=== PATIENT | female | born 1935 | race Caucasian/White ===

== ENCOUNTER 2018-06-01 14:33 | Observation (INO) | payer MEDICARE, OTHER ==
[2018-06-01 14:33] VITALS: BMI 21.0
[2018-06-01 14:56] VITALS: RESP 20
--- NOTE | 2018-06-01 15:26 | C.PDOC ---
History Of Present Illness 82-year-old female, presents to the emergency department for G-tube placement. Patient has Hx of cough with swallowing for the past month, she was sent to [facility] yesterday, where she had a swallow screen which she failed. Patient was sent back to [facility] last night. This morning, pt was sent to ED for evaluation and G tube placement by Dr Krishna. No other complaints at this time. Time Seen by Provider: 06/01/18 14:57 Chief Complaint (Nursing): GI Problem History Per: Patient History/Exam Limitations: no limitations Current Symptoms Are (Timing): Still Present Past Medical History Reviewed: Historical Data, Nursing Documentation, Vital Signs Vital Signs: Last Vital Signs Temp 98.2 F 06/01/18 14:48 Pulse 70 06/01/18 14:48 Resp 20 06/01/18 14:48 BP 144/47 L 06/01/18 14:48 Pulse Ox 96 06/01/18 14:48 - Medical History PMH: Arthritis, CAD, Dementia, Diabetes, Fractures (RIGHT HIP FX WITH SURGERY,METAL IMPLANT,FX PELVIS 10-24-13), HTN, Hyperlipidemia Denies: Depression, Chronic Kidney Disease Surgical History: Coronary Stent (X2) - [facility] Procedures ENDOSC RETROGRADE CHOLANGIOPANCREATOGRAPHY [ERCP] (07/31/14) VENOUS PUNCTURE NEC (01/28/15) Family History: States: No Known Family Hx - Social History Hx Alcohol Use: No Hx Substance Use: No Review Of Systems Constitutional: Negative for: Fever Cardiovascular: Negative for: Chest Pain, Palpitations Respiratory: Positive for: Cough Gastrointestinal: Negative for: Nausea, Vomiting Neurological: Negative for: Weakness, Numbness, Headache, Dizziness Physical Exam - Physical Exam Appears: Non-toxic, No Acute Distress Skin: Warm, Dry, No Rash Head: Atraumatic, Normacephalic Eye(s): bilateral: Normal Inspection, PERRL, EOMI Nose: Normal Oral Mucosa: Moist Lips: Normal Appearing Neck: Normal ROM Cardiovascular: Rhythm Regular, No Murmur Respiratory: Normal Breath Sounds, No Accessory Muscle Use Gastrointestinal/Abdominal: Soft, No Tenderness, Other (functional ostomy RLQ) Back: Normal Inspection Extremity: Normal ROM, No Deformity, No Swelling Neurological/Psych: Oriented x3, Normal Speech ED Course And Treatment - Laboratory Results Result Diagrams: 09/26/18 15:29 O2 Sat by Pulse Oximetry: 96 Pulse Ox Interpretation: Normal (RA) - Physician Consult Information Physician Contacted: Joshua Shelby Outcome Of Conversation: Patient to be admitted to his service for GI consultation for G tube placement. Dr mcgowan to be consulted for cardiac clearance Disposition Counseled Patient/Family Regarding: Studies Performed - Disposition Disposition: HOSPITALIZED Disposition Time: 15:56 Condition: STABLE - POA Present On Arrival: None - Clinical Impression Clinical Impression: Dysphagia, At risk for aspiration - Scribe Statement The provider has reviewed the documentation as recorded by the Scribe (Dale Tam) Provider Attestation: All medical record entries made by the Scribe were at my direction and personally dictated by me. I have reviewed the chart and agree that the record accurately reflects my personal performance of the history, physical exam, medical decision making, and the department course for this patient. I have also personally directed, reviewed, and agree with the discharge instructions and disposition.
[2018-06-01] MEDS ORDERED: Sodium Chloride 0.9% 1,000 ML IV SCH (15:30)
[2018-06-01] MEDS ORDERED: Sodium Chloride 0.9% 1,000 ML ONE (15:34)
[2018-06-01 15:38] LABS: BASO # 0.1 K/uL (0.0-0.2); BASO % 0.8 % (0.0-2.0); EOS # 0.1 K/uL (0.0-0.7); EOS % 0.9 % (0.0-4.0); HEMOGLOBIN 12.7 g/dL (11.0-16.0); LYMPH # 4.1 K/uL (1.0-4.3); LYMPH % 40.6 % (20.0-40.0); MEAN CELL VOLUME 90.8 fL (81.0-99.0); MEAN CORPUSCULAR HEMOGLOBIN 30.3 pg (27.0-31.0); MEAN CORPUSCULAR HGB CONC 33.4 g/dL (33.0-37.0); MEAN PLATELET VOLUME 7.9 fL (7.2-11.7); MONO # 0.7 K/uL (0.0-0.8); MONO % 7.2 % (0.0-10.0); NEUT # 5.1 K/uL (1.8-7.0); NEUT % 50.5 % (50.0-75.0); RBC 4.19 Mil/uL (3.80-5.20); RED CELL DISTRIBUTION WIDTH 14.4 % (11.5-14.5); WHITE BLOOD COUNT 10.1 K/uL (4.8-10.8)
[2018-06-01 17:16] LABS: ALB/GLOB RATIO 1.2 (1.0-2.1); ALBUMIN 3.6 g/dL (3.5-5.0); ALT/SGPT 23 U/L (9-52); AST/SGOT 18 U/L (14-36); BLOOD UREA NITROGEN 13 mg/dL (7-17); CALCIUM 9.4 mg/dl (8.6-10.4); GFR NON-AFRICAN AMERICAN > 60
[2018-06-01] MEDS ORDERED: Sodium Chloride 0.45% 1,000 ML IV SCH (18:30)
[2018-06-01] MEDS: (Novolin R) Insulin Human Regular 100 units/ml vial SC SCH (22:15)
--- NOTE | 2018-06-02 05:42 | HP ---
HISTORY OF PRESENT ILLNESS: I know Kim very well from [facility]. She has been there for many years. Over the past few weeks, she stopped eating well, and she failed a swallowing eval, and at a point where we need to put a feeding tube in her. The family wants to have that done, so she is here for feeding tube placement and consult with the income tax advisor and assistant executive housekeeper for clearance but she is medically cleared. PAST MEDICAL AND SURGICAL HISTORY: She has a past medical history of cough and swallow problems. She has arthritis, CAD, dementia, diabetes, fracture of the right hip. The surgeries were metal implant, pelvic fracture. Hypertension, high cholesterol. She had coronary stents x2, right hip fracture was repaired, endoscopic retrograde cholangiopancreatography. FAMILY HISTORY: Hypertension and diabetes in the family. SOCIAL HISTORY: No alcohol. No drugs. REVIEW OF SYSTEMS: She is alert, pleasantly confused. Talks very slowly. She tells me she is okay. No apparent chest pain or palpitation. There is a clock every now and then. No nausea, vomiting apparently. No diarrhea. She is weak and bedridden. She does get out to a wheelchair. PHYSICAL EXAMINATION: GENERAL: She is alert, looking at me, tells me okay, nontoxic, in no acute distress. VITAL SIGNS: She has a 98.2 temperature, pulse 70, respiratory rate 20, blood pressure 144/47, O2 sat of 96% on room air. SKIN: Warm and dry. No apparent rashes or ulcers. HEENT: Atraumatic and normocephalic. Extraocular muscles are intact. Throat is dry. NECK: Supple. No JVD. HEART: Regular rate. Normal S1, S2. LUNGS: Decreased breath sounds. Clear to auscultation. No wheezes or rhonchi. No rales. Poor effort. ABDOMEN: Soft, nontender. No positive bowel sounds. No guarding. No rebound or CVA tenderness. EXTREMITIES: No edema. She is thin and frail, and alert. LABORATORY DATA: She has a 10.1 white count, 12.7 hemoglobin, 38 hematocrit with 302 platelets. O2 sat is 96% on room air. She also has 140 sodium, potassium 4.3, BUN 13, creatinine 0.7, GFR is greater than 60, sugar is 101, calcium 9.4, total bili is 0.8, AST is 18, ALT is 23, alkaline phosphatase is 63, total protein is 6.6, albumin is 3.6, globulin 3. She has basically stopped eating and swallowing, and the recommendation from the speech therapist is not to have her swallow anymore which means we are going to have a feeding tube, that is what we are doing, that is why she is here. She will have IV fluids tonight. We will check her labs tomorrow. GI consult and cardiology evaluation for clearance. I think, she will be okay. She is a very sweet lady. I put her on a diabetic, insulin coverage, and a blood pressure patch, clonidine until we get regular meds through the feeding tube. She is pleasant, comfortable, in no apparent distress. Joshua Shelby DO
[2018-06-02] MEDS ORDERED: Dextrose 5%/0.45% NS 1,000 ML IV SCH (06:00)
[2018-06-02 06:28] LABS: HEMOGLOBIN 11.9 g/dL (11.0-16.0); MEAN CELL VOLUME 91.1 fL (81.0-99.0); MEAN CORPUSCULAR HEMOGLOBIN 30.2 pg (27.0-31.0); MEAN CORPUSCULAR HGB CONC 33.1 g/dL (33.0-37.0); RBC 3.93 Mil/uL (3.80-5.20); RED CELL DISTRIBUTION WIDTH 13.9 % (11.5-14.5); WHITE BLOOD COUNT 8.3 K/uL (4.8-10.8)
[2018-06-02 06:46] LABS: INR 1.1; PROTHROMBIN TIME 12.5 SECONDS (9.7-12.2)
[2018-06-02 06:50] LABS: ALB/GLOB RATIO 1.3 (1.0-2.1); ALBUMIN 3.6 g/dL (3.5-5.0); ALT/SGPT 23 U/L (9-52); AST/SGOT 19 U/L (14-36); BLOOD UREA NITROGEN 12 mg/dL (7-17); CALCIUM 9.1 mg/dl (8.6-10.4); GFR NON-AFRICAN AMERICAN > 60
[2018-06-02 07:38] VITALS: O2SAT 97
--- NOTE | 2018-06-02 07:47 | CP.PCM.CON ---
Addendum entered and electronically signed by Keri Almaguer DO 06/02/18 12:17: Patient's son recalls prior history of EGD and colonoscopy 7 years ago endorsed to be normal in [place], [place]. Original Note: <Keri Almaguer - Last Filed: 06/02/18 08:14> History of Present Illness - History of Present Illness History of Present Illness: Gastroenterology Fellow/PGY6 Consult Note 82 year old female with PMH of Dementia, Ischemic Colitis s/p partial colectomy with colostomy 2009, CAD s/p 2 stents on Plavix 2011, PAD s/p right foot digits amputations, Diabetes, HTN, and HLD presenting with dysphagia. Unable to obtain history from patient due to advanced dementia. History obtained from son and record review. Son notes issues with swallowing since january 2018 with transition to soft diet for the last 1.5 months due to coughing with swallowing. He admits to subjective unintentional weight loss of 25 pounds over the last two years. Denies vomiting, abdominal pain, diarrhea, constipation, melena, or hematochezia. Records on chart from [facility] on 05/31, CT neck w/ contrast showed normal oropharynx, speech/swallow evaluation with high risk of aspiration, and modified barium swallow showed moderate to severe oropharyngeal dysphagia with aspiration. Recommendation of NPO with pleasure nectar thick liquid feeding only with teaspoon and no medications to be taken by mouth. No prior EGD or colonoscopy. Family History- father-throat cancer, denies stomach cancer, colon cancer Social History- denies tobacco, alcohol, illicit drug use Surgical History- right hip ORIF, right foot 2/3/4 digit amputations, cardiac stents 2011, cholecystectomy prior to ERCP 07/2014, ERCP 07/2014 for cholangitis 2/2 choledocholithiasis complicated by gallstone pancreatitis Review of Systems - Review of Systems Review of Systems: 12-point review of systems negative except for as above Past Patient History - Infectious Disease Hx of Infectious Diseases: None - Tetanus Immunizations Tetanus Immunization: Unknown - Past Medical History & Family History Past Medical History?: Yes - Past Social History Smoking Status: Never Smoked - CARDIAC Hx Hypertension: Yes - PULMONARY Hx Respiratory Disorders: No - NEUROLOGICAL Hx Dementia: Yes - HEENT Hx HEENT Problems: (WEARS RX GLASSES) - RENAL Hx Chronic Kidney Disease: No - ENDOCRINE/METABOLIC Hx Diabetes Mellitus Type 2: Yes - HEMATOLOGICAL/ONCOLOGICAL Hx Cancer: Yes (colon ca s/p colostomy, colonic resection) Other/Comment: colostomy - INTEGUMENTARY Other/Comment: pressure ulcer to left buttocks - MUSCULOSKELETAL/RHEUMATOLOGICAL Hx Arthritis: Yes Hx Falls: No Hx Fractures: Yes (RIGHT HIP FX WITH SURGERY,METAL IMPLANT,FX PELVIS [id number]) - GASTROINTESTINAL Hx Gastrointestinal Disorders: Yes Hx Colostomy: Yes - GENITOURINARY/GYNECOLOGICAL Hx Genitourinary Disorders: Yes (URGENCY) - PSYCHIATRIC Hx Depression: No Hx Substance Use: No - SURGICAL HISTORY Hx Coronary Stent: Yes (X2) Hx Joint Replacement: Yes (hip L) - ANESTHESIA Hx Anesthesia: Yes Hx Anesthesia Reactions: No Hx Malignant Hyperthermia: No Meds Allergies/Adverse Reactions: Allergies Allergy/AdvReac Type Severity Reaction Status Date / Time No Known Allergies Allergy Verified 06/01/18 14:55 - Medications Medications: Current Medications Clonidine HCl (Catapres Tts1 0.1 Mg/24 Hr) 1 patch TD Q7D@1000 [facility] Last Admin: 06/01/18 22:05 Dose: 1 patch Dextrose/Sodium Chloride (Dextrose 5%/0.45% Ns 1000 Ml) 1,000 mls @ 60 mls/hr I V .[id number] [facility] Last Admin: 06/02/18 06:10 Dose: 60 mls/hr Insulin Human Regular (Novolin R) 0 unit SC ACHS [facility] Last Admin: 06/01/18 22:15 Dose: Not Given Physical Exam - Constitutional Appears: Non-toxic, No Acute Distress - Head Exam Head Exam: ATRAUMATIC, NORMOCEPHALIC - Eye Exam Eye Exam: EOMI, PERRL. absent: Scleral icterus Pupil Exam: PERRL. absent: Miosis, Mydriatic - ENT Exam ENT Exam: Mucous Membranes Moist, Normal Oropharynx - Neck Exam Neck exam: Positive for: Full Rom, Normal Inspection - Respiratory Exam Respiratory Exam: Clear to Auscultation Bilateral. absent: Rales, Rhonchi, Wheezes - Cardiovascular Exam Cardiovascular Exam: RRR, +S1, +S2. absent: Gallop, Rubs - GI/Abdominal Exam GI & Abdominal Exam: Normal Bowel Sounds, Soft. absent: Distended, Firm, Guarding, Organomegaly, Pulsatile Mass, Rebound, Rigid, Tenderness Additional comments: RLQ colostomy with liquid brown stool - Extremities Exam Extremities exam: Positive for: normal inspection. Negative for: pedal edema Additional comments: right foot 2nd, 3rd, 4th digit amputations - Neurological Exam Neurological exam: Alert Additional comments: not oriented, incomprehensible speech - Psychiatric Exam Additional comments: minimal verbal expression that is incomprehensible - Skin Skin Exam: Dry, Intact, Normal Color, Warm Results - Vital Signs Recent Vital Signs: Last Vital Signs Temp 98 F 06/02/18 07:32 Pulse 78 06/02/18 07:32 Resp 20 06/02/18 07:32 BP 169/73 H 06/02/18 07:32 Pulse Ox 97 06/02/18 07:32 - Labs Result Diagrams: 06/02/18 06:23 06/02/18 06:23 Labs: Laboratory Results - last 24 hr 06/01/18 06/01/18 06/01/18 15:29 16:26 17:24 WBC 10.1 RBC 4.19 Hgb 12.7 Hct 38.0 MCV 90.8 MCH 30.3 MCHC 33.4 RDW 14.4 Plt Count 302 MPV 7.9 Neut % (Auto) 50.5 Lymph % (Auto) 40.6 H [place] % (Auto) 7.2 Eos % (Auto) 0.9 Baso % (Auto) 0.8 Neut # (Auto) 5.1 Lymph # (Auto) 4.1 [place] # (Auto) 0.7 Eos # (Auto) 0.1 Baso # (Auto) 0.1 PT INR Sodium 140 Potassium 4.3 Chloride 99 Carbon Dioxide 30 Anion Gap 15 BUN 13 Creatinine 0.7 Est GFR ( Amer) > 60 Est GFR (Non-Af Amer) > 60 POC Glucose (mg/dL) 101 Random Glucose 105 Calcium 9.4 Total Bilirubin 0.8 AST 18 ALT 23 Alkaline Phosphatase 62 Total Protein 6.6 Albumin 3.6 Globulin 3.0 Albumin/Globulin Ratio 1.2 06/01/18 06/02/18 06/02/18 21:10 02:13 06:23 WBC 8.3 RBC 3.93 Hgb 11.9 Hct 35.8 MCV 91.1 MCH 30.2 MCHC 33.1 RDW 13.9 Plt Count 285 MPV 8.0 Neut % (Auto) Lymph % (Auto) [place] % (Auto) Eos % (Auto) Baso % (Auto) Neut # (Auto) Lymph # (Auto) [place] # (Auto) Eos # (Auto) Baso # (Auto) PT INR Sodium Potassium Chloride Carbon Dioxide Anion Gap BUN Creatinine Est GFR ( Amer) Est GFR (Non-Af Amer) POC Glucose (mg/dL) 96 76 Random Glucose Calcium Total Bilirubin AST ALT Alkaline Phosphatase Total Protein Albumin Globulin Albumin/Globulin Ratio 06/02/18 06/02/18 06/02/18 06:23 06:23 07:20 WBC RBC Hgb Hct MCV MCH MCHC RDW Plt Count MPV Neut % (Auto) Lymph % (Auto) [place] % (Auto) Eos % (Auto) Baso % (Auto) Neut # (Auto) Lymph # (Auto) [place] # (Auto) Eos # (Auto) Baso # (Auto) PT 12.5 H INR 1.1 Sodium 138 Potassium 4.0 Chloride 101 Carbon Dioxide 28 Anion Gap 13 BUN 12 Creatinine 0.6 L Est GFR ( Amer) > 60 Est GFR (Non-Af Amer) > 60 POC Glucose (mg/dL) 87 Random Glucose 75 Calcium 9.1 Total Bilirubin 0.9 AST 19 ALT 23 Alkaline Phosphatase 57 Total Protein 6.4 Albumin 3.6 Globulin 2.8 Albumin/Globulin Ratio 1.3 Assessment & Plan - Assessment and Plan (Free Text) Assessment: 82 year old female with PMH of Dementia, Ischemic Colitis s/p partial colectomy with colostomy 2009, CAD s/p 2 stents on Plavix 2011, PAD s/p right foot digits amputations, Diabetes, HTN, and HLD presenting with dysphagia. Active treatment of failure to thrive 2/2 oropharyngeal dysphagia with GI consultation for PEG placement. No prior EGD or colonoscopy. Records on chart from [facility] on 05/31, CT neck w/ contrast showed normal oropharynx, speech/swallow evaluation with high risk of aspiration, and modified barium swallow showed moderate to severe oropharyngeal dysphagia with aspiration. Recommendation of NPO with pleasure nectar thick liquid feeding only with teaspoon and no medications to be taken by mouth. Plan: -NPO, high risk of aspiration based on modified barium swallow and speech evaluation -follow up cardiology recommendation for clearance -family discussion held with son, understands risks versus benefits of PEG placement -last dose of Plavix on Wednesday, 06/01, prior to admission precluding consideration of PEG placement for additional 72-96 hours -obtain record of CT A/P performed at [facility] per senior living records to rule out structural abnormality/pathology that would be a contraindication to percutane ous gastrostomy placement -obtain PT/INR -consider pleasure feeds and IVFs -further recommendations for possible PEG placement after [facility] record obtained for review of CT A/P and cardiology recommendation <Sai Krishna - Last Filed: 06/02/18 12:58> Meds - Medications Medications: Current Medications Clonidine HCl (Catapres Tts1 0.1 Mg/24 Hr) 1 patch TD Q7D@1000 [facility] Last Admin: 06/01/18 22:05 Dose: 1 patch Dextrose/Sodium Chloride (Dextrose 5%/0.45% Ns 1000 Ml) 1,000 mls @ 60 mls/hr IV .[id number] [facility] Last Admin: 06/02/18 06:10 Dose: 60 mls/hr Insulin Human Regular (Novolin R) 0 unit SC ACHS [facility] Last Admin: 06/02/18 12:16 Dose: Not Given Results - Vital Signs Recent Vital Signs: Last Vital Signs Temp 98 F 06/02/18 07:32 Pulse 78 06/02/18 07:32 Resp 20 06/02/18 07:32 BP 169/73 H 06/02/18 07:32 Pulse Ox 97 06/02/18 07:32 - Labs Result Diagrams: 06/02/18 06:23 06/02/18 06:23 Labs: Laboratory Results - last 24 hr 06/01/18 06/01/18 06/01/18 15:29 16:26 17:24 WBC 10.1 RBC 4.19 Hgb 12.7 Hct 38.0 MCV 90.8 MCH 30.3 MCHC 33.4 RDW 14.4 Plt Count 302 MPV 7.9 Neut % (Auto) 50.5 Lymph % (Auto) 40.6 H [place] % (Auto) 7.2 Eos % (Auto) 0.9 Baso % (Auto) 0.8 Neut # (Auto) 5.1 Lymph # (Auto) 4.1 [place] # (Auto) 0.7 Eos # (Auto) 0.1 Baso # (Auto) 0.1 PT INR Sodium 140 Potassium 4.3 Chloride 99 Carbon Dioxide 30 Anion Gap 15 BUN 13 Creatinine 0.7 Est GFR ( Amer) > 60 Est GFR (Non-Af Amer) > 60 POC Glucose (mg/dL) 101 Random Glucose 105 Calcium 9.4 Total Bilirubin 0.8 AST 18 ALT 23 Alkaline Phosphatase 62 Total Protein 6.6 Albumin 3.6 Globulin 3.0 Albumin/Globulin Ratio 1.2 06/01/18 06/02/18 06/02/18 21:10 02:13 06:23 WBC 8.3 RBC 3.93 Hgb 11.9 Hct 35.8 MCV 91.1 MCH 30.2 MCHC 33.1 RDW 13.9 Plt Count 285 MPV 8.0 Neut % (Auto) Lymph % (Auto) [place] % (Auto) Eos % (Auto) Baso % (Auto) Neut # (Auto) Lymph # (Auto) [place] # (Auto) Eos # (Auto) Baso # (Auto) PT INR Sodium Potassium Chloride Carbon Dioxide Anion Gap BUN Creatinine Est GFR ( Amer) Est GFR (Non-Af Amer) POC Glucose (mg/dL) 96 76 Random Glucose Calcium Total Bilirubin AST ALT Alkaline Phosphatase Total Protein Albumin Globulin Albumin/Globulin Ratio 06/02/18 06/02/18 06/02/18 06:23 06:23 07:20 WBC RBC Hgb Hct MCV MCH MCHC RDW Plt Count MPV Neut % (Auto) Lymph % (Auto) [place] % (Auto) Eos % (Auto) Baso % (Auto) Neut # (Auto) Lymph # (Auto) [place] # (Auto) Eos # (Auto) Baso # (Auto) PT 12.5 H INR 1.1 Sodium 138 Potassium 4.0 Chloride 101 Carbon Dioxide 28 Anion Gap 13 BUN 12 Creatinine 0.6 L Est GFR ( Amer) > 60 Est GFR (Non-Af Amer) > 60 POC Glucose (mg/dL) 87 Random Glucose 75 Calcium 9.1 Total Bilirubin 0.9 AST 19 ALT 23 Alkaline Phosphatase 57 Total Protein 6.4 Albumin 3.6 Globulin 2.8 Albumin/Globulin Ratio 1.3 06/02/18 11:12 WBC RBC Hgb Hct MCV MCH MCHC RDW Plt Count MPV Neut % (Auto) Lymph % (Auto) [place] % (Auto) Eos % (Auto) Baso % (Auto) Neut # (Auto) Lymph # (Auto) [place] # (Auto) Eos # (Auto) Baso # (Auto) PT INR Sodium Potassium Chloride Carbon Dioxide Anion Gap BUN Creatinine Est GFR ( Amer) Est GFR (Non-Af Amer) POC Glucose (mg/dL) 109 Random Glucose Calcium Total Bilirubin AST ALT Alkaline Phosphatase Total Protein Albumin Globulin Albumin/Globulin Ratio Attending/Attestation - Attestation I have personally seen and examined this patient.: Yes I have fully participated in the care of the patient.: Yes I have reviewed all pertinent clinical information: Yes Notes (Text): 06/02/18 12:51 I have seen and examined patient with GI fellow. Agree with above documentation with the following additions. In brief, this is an 82 year old female with history of CAD s/p stent on plavix (last dose yesterday), dementia, colonic ischemia s/p partial resection and ostomy, DM, HTN who is sent from nursing facility for evaluation of progressive dysphagia. Patient herself is not able to fully participate in meaningful conversation, additional information obtained via discussion with patient's son at bedside and nursing staff. He reports she has deteriorated over the past 3 months with progressive dysphagia, coughing during attempted food swallowing, and weight loss of 25 pounds over the past two years. She otherwise denies abdominal pain, nausea, vomiting, fever/chills, or change in bowel habits. She had an EGD/colonoscopy 7 years ago which were normal as per patient's son. CAD s/p stent on plavix (held) Dementia Colonic ischemia s/p partial resection and ostomy DM / HTN Dysphagia - Patient with recent barium swallow at [facility] showing moderate/severe oropharyngeal dysphagia - Obtain copy of recent CT imaging performed - NPO - Follow up cardiology recommendations - Continue with IVF hydration, supportive care - Risks/benefits of endoscopic gastrostomy tube placement discussed with patient's son who is agreeable to proceed with procedure. Will need to wait for 4-5 days to allow for plavix wash out prior to PEG placement, can tentatively plan for Wednesday. Will continue to monitor patient clinical course.
[2018-06-02] MEDS: (Novolin R) Insulin Human Regular 100 units/ml vial SC SCH ×3 (07:52→16:48)
[2018-06-02 18:34] VITALS: TEMP 97.8
[2018-06-02 18:35] VITALS: BP 169/76; PULSE 63
--- NOTE | 2018-06-03 03:45 | DS ---
HISTORY OF PRESENT ILLNESS: She supposed to have a feeding tube placed today. She is medically cleared for the procedure. I am hoping later on today, she can go back to [facility], where she lives permanently and we cover there. Then in 24 hours, we will restart the PEG tube feeding. She will continue with the IV fluids, I changed it to D5 and a half. The blood sugar was 75. She is on the clonidine patch for the blood pressure. She is alert and comfortable. PHYSICAL EXAMINATION: VITAL SIGNS: 97.7 temp, 81 pulse, 167/66 blood pressure, 20 respiratory, 96% O2 sat on room air. GENERAL: She is alert. She baseline. HEART: Regular rate. LUNGS: Clear to auscultation. Decreased breath sounds. ABDOMEN: Soft, nontender. Positive bowel sounds. EXTREMITIES: No edema. MEDICATIONS: She is on Catapres patch, dextrose and insulin coverage. LABORATORY DATA; She had a 10.1 white count, 12.7 hemoglobin, 302 platelets, 140 sodium, potassium 4.3, BUN 30, creatinine 0.7, last blood sugar was 76, D5 and a half. Calcium 9.4, total bilirubin 0.8, AST is 18, ALT 23, alkaline phosphatase 63, total protein 6.6. PLAN: I am hoping after the PEG tube is placed, she will be discharged back to [facility] today. Operative physician, nurse communication had called me at 1 o'clock this afternoon for the discharge order and she is here for PEG tube placement as per family wishes. Of course, she has dysphagia and cannot swallow anymore. Joshua Shelby DO JUDY
== END 2018-06-02 21:30 ==
LOC: C.ER 14:33 → C.9E 15:19 → INTOOBSV 15:19 → C.3T 16:27
PROVIDERS: ADMIT Family Medicine; ATTEND Family Medicine
DX: R13.12 Dysphagia, oropharyngeal phase (principal); E11.51 Type 2 diabetes mellitus with diabetic peripheral angiopathy without gangrene; I10 Essential (primary) hypertension; I25.10 Atherosclerotic heart disease of native coronary artery without angina pectoris; E78.5 Hyperlipidemia, unspecified; F03.90 Unspecified dementia, unspecified severity, without behavioral disturbance, psychotic disturbance, mood disturbance, and anxiety; Z79.4 Long term (current) use of insulin
CPT/HCPCS: 36415; 80053; 82948; 85025; 85027; 85610; 99284; G0378; J7030; J7042